=== PATIENT | male | born 1945 | race Caucasian/White ===

== ENCOUNTER 2023-07-27 11:05 | Outpatient (CLI) | payer MEDICARE | END 2023-07-27 11:06 | disposition home or self-care (01) | LOC: CSHRAD 11:05 | PROVIDERS: ATTEND Family Medicine | DX: J18.9 Pneumonia, unspecified organism (principal) | CPT/HCPCS: 71046 ==

== ENCOUNTER 2024-02-29 08:21 | Outpatient (CLI) | payer MEDICARE ==
[2024-02-29] MEDS ORDERED: Magnevist 469MG/ML 20 ML VIAL ONE (09:01)
== END 2024-02-29 08:22 | disposition home or self-care (01) ==
LOC: CSHMRI 08:21
PROVIDERS: ATTEND Urology
DX: C61 Malignant neoplasm of prostate (principal)
CPT/HCPCS: 72197; A9579